=== PATIENT | male | born 1960 | race Caucasian/White ===

== ENCOUNTER → 2020-10-03 13:48 | Outpatient (CLI) | payer OTHER, SELFPAY ==
--- NOTE | ~2020-10-03 | CT_ITS ---
EXAMINATION: CT abdomen pelvis wo/w con DATE: 10/03/2020 14:37 INDICATION: Gross hematuria TECHNIQUE: Computed tomography (CT) of the abdomen and pelvis was performed without and subsequently with 130 cc Omnipaque 350 intravenous contrast. Automated exposure control and iterative reconstructi on technique were employed. Exam dose: 1780.62 mGy-cm total exam DLP. COMPARISON: None. FINDINGS: The lung bases are clear of infiltrate or consolidation. Normal heart size. No pericardial or pleural effusion. There are scattered hepatic cysts measuring up to 11.5 mm approximate maximal dimension. The gallblad silvino is present and appears unremarkable. No bile duct or pancreatic duct dilatation. No pancreatic ma ss lesion or calcification. Normal splenic size. Normal morphology of the adrenal glands. 7 mm upper pole right renal cyst. No other renal space-occupying mass lesion or filling defect of the renal collecting systems or urinary bladder is evident. No ureteral calculus or hydroureteronephrosis. There is very prominent enlargement of the prostate gland, impressing the base of the urinary bladder . There is moderate bladder wall thickening. No intraluminal bladder lesion is evident. Normal caliber of the abdominal aorta. No intraperitoneal or retroperitoneal or pelvic mass lesion or adenopathy or ascites. Very small fat-containing umbilical hernia. Normal appendix. Mild colonic diverticulosis; no evidence of diverticulitis. No bowel obstruction, adam wel wall thickening, pneumatosis or intraperitoneal free air. IMPRESSION: Prominent prostate enlargement and moderate thickening of the urinary bladder wall secon yvon to bladder outlet obstruction Hepatic cysts 7 mm upper pole right renal cyst Mild colonic diverticulosis Reviewed, dictated and finalized at [facility]. Reviewed, dictated and finalized at [facility]. IMPRESSION: Prominent prostate enlargement and moderate thickening of the urin jacki bladder wall secondary to bladder outlet obstruction Hepatic cysts 7 mm upper pole right renal cyst Mild colonic diverticulosis
[2020-10-03 14:15] LABS: Estimated Glomerular Filt Rate 52
== END ==
PROVIDERS: Visit Provider Nurse Practitioner
DX: R31.9 Hematuria, unspecified (principal); N28.1 Cyst of kidney, acquired; K57.30 Diverticulosis of large intestine without perforation or abscess without bleeding
CPT/HCPCS: 74178; Q9967